=== PATIENT | female | born 1985 | race Caucasian/White ===

== ENCOUNTER 2017-04-06 20:17 | Emergency (ER) | payer OTHER ==
[2017-04-06 20:23] VITALS: RESP 18; TEMP 99.3
--- NOTE | 2017-04-06 20:29 | EDPHY ---
H & P Stated Complaint: Rash and SOB Time Seen by Provider: 04/06/17 20:28 HPI/ROS: CHIEF COMPLAINT: Rash, pruritus, mild dyspnea HISTORY OF PRESENT ILLNESS: The patient presents to the ED with complaints of a pruritic urticarial rash which began several hours ago. The rash developed after taking hydrocodone which she has been prescribed for postoperative pain management from a recent parathyroidectomy. The patient has no prior history of allergic reaction or anaphylaxis. The patient did take 50 mg of Benadryl at 5:00 p.m. with minimal improvement. The patient denies taking any additional medications. The patient reports her symptoms of pruritus and rash are moderate to severe in nature. Her dyspnea is mild. REVIEW OF SYSTEMS: A comprehensive 10 point review of systems is otherwise negative aside from elements mentioned in the history of present illness. Source: Patient Exam Limitations: No limitations - Personal History LMP (Females 10-55): 8-14 Days Ago Current Tetanus/Diphtheria Vaccine: Yes Current Tetanus Diphtheria and Acellular Pertussis (TDAP): Yes - Medical/Surgical History Hx Asthma: No Hx Chronic Respiratory Disease: No Hx Diabetes: No Hx Cardiac Disease: No Hx Renal Disease: No Hx Cirrhosis: No Hx Alcoholism: No Hx HIV/AIDS: No Hx Splenectomy or Spleen Trauma: No Other PMH: parathyriod surgery, bilat knee surgery - Social History Smoking Status: Never smoked - Physical Exam Exam: General Appearance: Alert, no distress Eyes: Pupils equal and round no pallor or injection ENT, Mouth: Mucous membranes moist Respiratory: There are no retractions, lungs are clear to auscultation Cardiovascular: Regular rate and rhythm Gastrointestinal: Abdomen is soft and nontender, no masses, bowel sounds normal Neurological: A&O, normal motor function, normal sensory exam, normal cranial nerves Skin: Diffuse urticarial rash Musculoskeletal: Neck is supple nontender Extremities: symmetrical, full range of motion Constitutional: Initial Vital Signs Temperature (C) 37.4 C 04/06/17 20:20 Heart Rate 91 04/06/17 20:20 Respiratory Rate 18 04/06/17 20:20 Blood Pressure 124/70 H 04/06/17 20:20 O2 Sat (%) 99 04/06/17 20:20 O2 Delivery Mode Room Air Allergies/Adverse Reactions: oxycodone Allergy (Verified 04/06/17 21:19) Home Medications: Medication Instructions Recorded Calcium 04/06/17 Hydrocodon-Acetaminoph 7.5-300 04/06/17 Vit D3-Vit K/Berberine/Hops 04/06/17 predniSONE [prednisone 20mg (RX)] 2 tab PO DAILY #8 tab 04/06/17 Medical Decision Making ED Course/Re-evaluation: The patient presents to the ED with acute urticaria and pruritus. Patient had an IV established. She received 125 mg of IV Solu-Medrol. She received 20 mg of IV Pepcid. She had taken Benadryl prior to arrival. The patient also received 0.3 mg of IM epinephrine given the severity of her pruritus. The patient was placed on a cardiac technologist. The patient was reexamined by myself at 9:15 p.m. and is demonstrating clinical improvement. Vital signs remained stable. Re-examination at 10:00 p.m.: Patient states her symptoms have entirely resolved. Lungs are clear to auscultation bilaterally she would like to be discharged from the emergency department. The patient will be given a prescription for prednisone. She is advised to continue to use Benadryl as needed. She should return to the ED for any recurrent symptoms or other concerns. Differential Diagnosis: Differential diagnosis considered includes urticaria, anaphylaxis, angioedema - Data Points Medications Given: Discontinued Medications Epinephrine HCl (Epinephrine) 0.3 mg IM EDNOW ONE Stop: 04/06/17 20:47 Last Admin: 04/06/17 20:30 Dose: 0.3 mg Famotidine/Sodium Chloride (Pepcid 20 Mg (Premix)) 50 mls @ 200 mls/hr IV EDNOW ONE Stop: 04/06/17 21:01 Last Admin: 04/06/17 20:40 Dose: 50 mls Methylprednisolone Sodium Succinate (Solu-Medrol) 125 mg IVP EDNOW ONE Stop: 04/06/17 20:48 Last Admin: 04/06/17 20:40 Dose: 125 mg Departure - Departure Disposition: Home, Routine, Self-Care Clinical Impression: Urticaria Condition: Good Instructions: Urticaria (ED) Additional Instructions: 1. Please avoid oxycodone. 2. Benadryl 50 mg every 6 hours as needed for rash. Pepcid 20 mg daily for any ongoing rash and itching. 3. Take prednisone 40 mg daily for next 5 days for any recurrence rash or itching. 4. Return to the ED for any markedly worsening symptoms or other concerns. Referrals: ANA ARELLANO [Primary Care Provider] - As per Instructions
[2017-04-06] MEDS ORDERED: methylPREDNISolone SOD SUCC 125 MG/2 ML VIAL ONE (20:37)
[2017-04-06] MEDS ORDERED: FAMOTIDINE 20 MG/NACL/50 ML BAG IV ONE (20:38)
[2017-04-06] MEDS ORDERED: FAMOTIDINE 20 MG/NACL 50 ML IV ONE (20:47)
[2017-04-06] MEDS ORDERED: methylPREDNISolone SOD SUCC 125 MG/2 ML VIAL IVP ONE (20:47)
[2017-04-06] MEDS ORDERED: HYDROCOD/APAP 5/325 PREPACK#6 BTL TAKEHOME ONE (22:16)
[2017-04-06 22:25] VITALS: BP 107/62; PULSE 93; O2SAT 95
== END 2017-04-06 22:25 | disposition home or self-care (01) ==
DX: L50.9 Urticaria, unspecified (principal)
CPT/HCPCS: 96365; J2930